=== PATIENT | female | born 1995 | race Caucasian/White ===

== ENCOUNTER 2022-09-19 17:35 | Emergency (ER) | payer OTHER ==
[2022-09-19 18:03] LABS: BILIRUBIN,URINE NEGATIVE (NEGATIVE); GLUCOSE, URINE (UA) NEGATIVE (NEGATIVE); KETONES,URINE (UA) NEGATIVE (NEGATIVE); LEUKOCYTE ESTERASE, URINE TRACE (NEGATIVE); NITRITE,URINE NEGATIVE (NEGATIVE); OCCULT BLOOD,URINE TRACE-INTA (NEGATIVE); PH,URINE 5.5 PH (5.0-7.5); PROTEIN,URINE NEGATIVE (NEGATIVE); UROBILINOGEN,URINE 0.2 (NORMAL) E.U./dL (NORMAL)
[2022-09-19 18:17] LABS: CLARITY,URINE CLEAR (CLEAR); HCG UR QUAL NEGATIVE
[2022-09-19 18:20] LABS: ALBUMIN 4.5 g/dL (3.2-5.5); ALBUMIN/GLOBULIN RATIO 1.4 (1.0-2.2); BILIRUBIN,TOTAL 0.4 mg/dL (0.2-1.0); CALCIUM 9.5 mg/dL (8.5-10.3); CREATININE 0.9 mg/dL (0.4-1.0); POTASSIUM 3.3 mmol/L (3.5-5.0); TOTAL PROTEIN 7.8 g/dL (6.7-8.2)
[2022-09-19 18:23] LABS: BASOPHILS % (AUTO) 0.3 %; EOSINOPHILS # (AUTO) 0.1 10^3/uL (0.0-0.7); EOSINOPHILS % (AUTO) 0.4 %; HCT - HEMATOCRIT 40.2 % (37.0-47.0); HGB - HEMOGLOBIN 13.7 g/dL (12.0-16.0); LYMPHOCYTES # (AUTO) 2.8 10^3/uL (1.5-3.5); LYMPHOCYTES % (AUTO) 21.2 %; MEAN CORPUSCULAR HEMOGLOBIN 31.6 pg (27.0-31.0); MEAN CORPUSCULAR HGB CONC 34.1 g/dL (32.0-36.0); MEAN CORPUSCULAR VOLUME 92.8 fL (81.0-99.0); MEAN PLATELET VOLUME 11.1 fL (7.9-10.8); MONOCYTES # (AUTO) 0.8 10^3/uL (0.0-1.0); MONOCYTES % (AUTO) 6.2 %; NEUTROPHILS # (AUTO) 9.6 10^3/uL (1.5-6.6); NEUTROPHILS % (AUTO) 71.6 %; PLT - PLATELET COUNT 236 10^3/uL (130-450); RED BLOOD COUNT 4.33 10^6/uL (4.20-5.40); RED CELL DISTRIBUTION WIDTH 11.7 % (12.0-15.0); WHITE BLOOD COUNT 13.4 x10^3/uL (4.8-10.8)
[2022-09-19 18:25] LABS: BACTERIA,URINE Few /HPF (None Seen); MUCUS,URINE Few Strands; RBC,URINE 0-5 /HPF (0-5); SQUAMOUS EPITHELIAL CELL,UR MOD Squamous (<= Few)
[2022-09-19] MEDS ORDERED: ONDANSETRON 4 MG/2 ML VIAL IVP STA (18:45)
[2022-09-19] MEDS ORDERED: HYDROmorphone 1 MG/ML CARPUJECT IVP STA (18:45)
[2022-09-19] MEDS ORDERED: SODIUM CHLORIDE 0.9% 1,000 ML IV STA (18:45)
--- NOTE | 2022-09-19 18:58 | ED Physician Documentation ---
History of Present Illness - Stated complaint Stated Complaint: ABD/BACK PAIN - Chief complaint Chief Complaint: Abd Pain - Additonal information Additional information: 26-year-old female presents to the emergency department for evaluation of acute right-sided back pain. She reports that it radiates from her anterior abdomen to her back. She has had some nausea but no vomiting. Reports daily bowel movements but is still concerned she could be constipated. She has no urinary symptoms today but states she might of had a urinary tract infection 3 days ago and for this took Azo. Past surgical history is most significant for a only. In initial evaluation of the patient in the room she is curled up in the position, crying, rocking back and forth with a blanket over her head. She had to be coaxed out of the blanket for interview and history. Initially I did offer her IV fluids and Dilaudid but the patient declined that stating she did not want to be constipated but after some prompting was able to allow us to administer these medications. Review of Systems Constitutional: denies: Fever, Chills Cardiac: reports: Reviewed and negative Respiratory: reports: Reviewed and negative GI: reports: Abdominal Pain, Nausea. denies: Vomiting, Constipation : reports: Reviewed and negative Musculoskeletal: reports: Reviewed and negative PD PAST MEDICAL HISTORY - Present Medications Home Medications: Ambulatory Orders Medication Instructions Recorded Confirmed Escitalopram [Lexapro] 20 mg PO DAILY 09/19/22 09/19/22 Oxycodone HCl/Acetaminophen 1 - 2 each PO Q6H PRN #14 tablet 09/19/22 [Percocet 5-325 mg Tablet] Tamsulosin HCl [Flomax] 0.4 mg PO DAILY #30 cap 09/19/22 - Allergies Allergies/Adverse Reactions: Allergies Allergy/AdvReac Type Severity Reaction Status Date / Time No Known Drug Allergies Allergy Verified 09/19/22 17:45 PD ED PE NORMAL - General General: Alert and oriented X 3. No: No acute distress (Crying, tearful, rocking back and forth.) - HEENT HEENT: PERRL - Cardiac Cardiac: RRR, No murmur - Respiratory Respiratory: No respiratory distress, Clear bilaterally - Abdomen Abdomen: Normal bowel sounds, Soft. No: Non tender (Nonperitoneal tenderness elicited with palpation and light percussion of the right lower quadrant and right flank. No CVA tenderness was elicited. No pain was elicited with palpation of the left side of the abdomen.) - Back Back: No CVA TTP - Derm Derm: Normal color, Warm and dry - Extremities Extremities: No deformity - Neuro Neuro: Alert and oriented X 3 Eye Opening: Spontaneous Motor: Obeys Commands Verbal: Oriented GCS Score: 15 Results - Vitals Vitals: Vital Signs - 24 hr 09/19/22 09/19/22 09/19/22 17:42 18:53 19:08 Temperature 36 C L Heart Rate 74 84 81 Respiratory 18 18 16 Rate Blood Pressure 107/68 111/79 110/66 O2 Saturation 100 100 96 09/19/22 19:44 Temperature Heart Rate 85 Respiratory 23 Rate Blood Pressure 111/76 O2 Saturation 98 Oxygen O2 Source Room air - Labs Labs: Laboratory Tests 09/19/22 09/19/22 09/19/22 17:50 17:54 17:54 WBC 13.4 H RBC 4.33 Hgb 13.7 Hct 40.2 MCV 92.8 MCH 31.6 H MCHC 34.1 RDW 11.7 L Plt Count 236 MPV 11.1 H Neut # (Auto) 9.6 H Lymph # (Auto) 2.8 [place] # (Auto) 0.8 Eos # (Auto) 0.1 Baso # (Auto) 0.0 Absolute Nucleated RBC 0.00 Nucleated RBC % 0.0 Sodium 138 Potassium 3.3 L Chloride 102 Carbon Dioxide 28 Anion Gap 8.0 BUN 17 Creatinine 0.9 Estimated GFR (MDRD) 76 L Glucose 118 H Calcium 9.5 Total Bilirubin 0.4 AST 23 ALT 18 Alkaline Phosphatase 57 Total Protein 7.8 Albumin 4.5 Globulin 3.3 Albumin/Globulin Ratio 1.4 Lipase 56 H Urine Color DARK YELLOW Urine Clarity CLEAR Urine pH 5.5 Ur Specific [place] >=1.030 H Urine Protein NEGATIVE Urine Glucose (UA) NEGATIVE Urine Ketones NEGATIVE Urine Occult Blood TRACE-INTA Urine Nitrite NEGATIVE Urine Bilirubin NEGATIVE Urine Urobilinogen 0.2 (NORMAL) Ur Leukocyte Esterase TRACE H Urine RBC 0-5 Urine WBC 4-5 Ur Squamous Epith Cells MOD Squamous H Urine Bacteria Few Urine Mucus Few Strands Ur Microscopic Review INDICATED Urine Culture Comments NOT INDICATED Urine HCG, Qual NEGATIVE - Rads (name of study) CT abd Relevant Findings:: Final report received (4 mm obstructing right UVJ calculus. Decreased right nephrogram indicates slightly decreased right renal function due to obstruction.) PD Medical Decision Making - ED course Complexity details: reviewed results, re-evaluated patient, d/w patient ED course: 26-year-old female presents emergency department for the evaluation of acute sudden severe right-sided Abdominal pain with radiation to the back. She had some nausea but no vomiting. On initial presentation she was crying, tearful and had to be coaxed from under a blanket for the clinical exam. She did have some tenderness along the right side of the abdomen and flank with no CVA tenderness elicited. We did obtain a CBC, electrolytes and urinalysis. Per my interpretation there is some mild leukocytosis with white count of 13,000. Her electrolytes showed no worrisome derangement. Her urinalysis is not consistent with infection. She is not . Given the location and acuity of the abdominal pain a CT scan was completed to rule out acute worrisome findings such as acute appendicitis, nephrolithiasis or bowel obstruction. CT subsequently did show a 4 mm obstructing stone at the right UVJ. There is some associated lack of contrast uptake in the right kidney consistent with obstruction. However the patient continues to have normal renal function. Initially in the emergency department she was administered a liter of IV fluid as well as some Dilaudid. This moderately improved her pain. I did then followed this up with a single dose of 30 mg Toradol IV. Patient did not feel that this improved her pain and was requesting more Dilaudid. Subsequently I administered 75 mcgs of fentanyl IV. This improved the pain on reevaluation. I did discuss with the patient the CT imaging findings. We discussed that typically stones under 5 mm will pass. She will be started on Flomax. I am recommending Tylenol and ibuprofen at home. A limited prescription of Percocet was sent home with the patient lorena and [place] She is advised close follow-up with PCP for referral to the urologist. Usual emergent return precautions for worsening symptoms were discussed. Departure - Departure Clinical Impression: Calculus of ureterovesical junction (UVJ) Condition: Stable Record reviewed to determine appropriate education?: Yes Instructions: ED Stone Renal W Colic Prescriptions: Tamsulosin HCl [Flomax] 0.4 mg PO DAILY #30 cap Oxycodone HCl/Acetaminophen [Percocet 5-325 mg Tablet] 1 - 2 each PO Q6H PRN #14 tablet PRN Reason: pain Comments: Yuly you are seen today in the ER because you develop sudden pain on your right side of the abdomen that radiated to your back. Your labs today in the emergency department did not show any worrisome findings. You do not have a urinary tract infection. However the CT scan did show a 4 mm stone in the ureter at the junction where it meets the bladder. This is slightly obstructing and is what is likely causing your belly and back pain. Most stones under 5 mm of size will successfully passed into the bladder. I have given you a dose of a medication called Flomax today in the emergency department. This can help dilate the ureter and hopefully get the stone to pass into the bladder where it will be less painful. Typically kidney and ureter pain such as this is best managed with ibuprofen 600 mg taken with food 3-4 times a day. You can also alternate with Tylenol 500 mg 2-3 times a day. For more severe pain I [place] It is important that you follow closely with your primary doctor. You may benefit from referral to urology for longer-term evaluation and monitoring of the right ureter stone. Return to the ER if you find that you are having worsening symptoms, uncontrolle d vomiting or develop any fevers.
[2022-09-19] MEDS ORDERED: iohexoL-300 100 ML VIAL ONE (19:01)
[2022-09-19] MEDS ORDERED: KETOROLAC 30 MG/ML VIAL IVP STA (19:59)
--- NOTE | 2022-09-19 20:18 | CT Report ---
PROCEDURE: ABDOMEN/PELVIS W INDICATIONS: Right-sided abdominal pain CONTRAST: 100mL Omni 300 TECHNIQUE: After the administration of intravenous contrast, 5 mm thick sections acquired from the diaphragms to the symphysis. 5 mm thick coronal and sagittal reformats were acquired. For radiation dose reducti on, the following was used: automated exposure control, adjustment of mA and/or kV according to pete ent size. COMPARISON: None FINDINGS: Image quality: Excellent. Lung bases and heart: Clear lung bases. Normal size heart. No hiatal hernia. Partially imaged bilater al breast implants. Liver: No solid mass. Gallbladder and biliary tree: Normal gallbladder. Nondilated biliary tree. Spleen: No splenomegaly. Pancreas: No pancreatic ductal dilation. Adrenals: No adrenal nodule. Kidneys and ureters: There is a delayed right nephrogram and slight relative right renal enlargement. There is mild right hydronephrosis and hydroureter. A 4 mm calcification is present at the right ure terovesicular junction. The left kidney and ureter appear normal. Bowel and peritoneum: Stomach and small bowel are normal. Normal appendix. Mildly increased quantity of solid stool. Lymph nodes: No central or retroperitoneal adenopathy. Vessels: No infrarenal aortic aneurysm. PELVIS Reproductive organs: Normal size uterus. Ovaries are not well seen on CT. Bladder: No abnormal wall thickening, accounting for underdistension. Pelvic lymph nodes: No pelvic adenopathy by size criteria. Bones: No aggressive osseous abnormality. Other: Tiny fat-containing umbilical hernia. Extensive subcutaneous tissue nodularity in the posterio r pelvic wall. IMPRESSION: 1. 4 mm obstructing right ureterovesicular junction calculus. 2. Decreased right nephrogram indicates slightly decreased right renal function due to obstruction. Reviewed by: Imani Melgoza MD on 09/19/2022 8:17 PM PDT Approved by: Imani Melgoza MD on 09/19/2022 8:17 PM PDT Station ID: [id number]
[2022-09-19] MEDS ORDERED: fentaNYL 100 MCG/2 ML VIAL IVP STA (20:43)
[2022-09-19] MEDS ORDERED: TAMSULOSIN 0.4 MG CAPSULE PO STA (20:43)
[2022-09-19] MEDS ORDERED: oxyCODONE/ACET 5/325 Prepack 4 PO STA (20:57)
[2022-09-19 21:28] VITALS: BP 100/61
[2022-09-19] MEDS ORDERED: iohexoL-300 100 ML VIAL IVP ONE (21:55)
== END 2022-09-19 21:45 | disposition home or self-care (01) ==
LOC: ED 17:35
DX: N20.1 Calculus of ureter (principal)
CPT/HCPCS: 36415; 74177; 80053; 81001; 81025; 83690; 85025; 96374; 96375; 99284; 99285; A9270; J1170; Q9967; 81003; 87086

== ENCOUNTER 2022-11-25 11:50 | Emergency (ER) | payer OTHER ==
[2022-11-25 12:07] VITALS: BP 122/70; O2SAT 100
[2022-11-25] MEDS ORDERED: DEXAMETHASONE 10 MG/ML VIAL PO STA (12:15)
[2022-11-25] MEDS ORDERED: CHERRY SYRUP 10 ML UDC PO ONE (12:15)
--- NOTE | 2022-11-25 12:17 | ED Physician Documentation ---
History of Present Illness - Stated complaint Stated Complaint: L ARM PX/RASH - Chief complaint Chief Complaint: General - History obtained from History obtained from: Patient - Additonal information Additional information: 2 nights ago she thinks she was stung on the left forearm by some sort of an insect. Since then its become inflamed and itchy. She denies fevers. PD PAST MEDICAL HISTORY - Present Medications Home Medications: Ambulatory Orders Medication Instructions Recorded Confirmed Escitalopram [Lexapro] 20 mg PO DAILY 09/19/22 09/19/22 Oxycodone HCl/Acetaminophen 1 - 2 each PO Q6H PRN #14 tablet 09/19/22 [Percocet 5-325 mg Tablet] Tamsulosin HCl [Flomax] 0.4 mg PO DAILY #30 cap 09/19/22 Mupirocin 2% Oint [Bactroban 2% 1 applic TOP BID #50 gm 11/25/22 Oint] - Allergies Allergies/Adverse Reactions: Allergies Allergy/AdvReac Type Severity Reaction Status Date / Time No Known Drug Allergies Allergy Verified 09/19/22 17:45 PD ED PE NORMAL - Vitals Vital signs reviewed: Yes - General General: Alert and oriented X 3, No acute distress - Extremities Extremities: Other (There is inflamed area about palm size over the left medial mid/upper forearm. There is what appears to be a bite in the center of it. It does not have the look of cellulitis. Painless pain range of motion at elbow an d wrist. No pain out of proportion to exam.) - Neuro Neuro: Alert and oriented X 3, Normal speech Results - Vitals Vitals: Vital Signs - 24 hr 11/25/22 11:57 Temperature 37.2 C Heart Rate 93 Respiratory 18 Rate Blood Pressure 122/70 O2 Saturation 100 Oxygen O2 Source Room air PD Medical Decision Making - ED course ED course: Appears to be a local reaction probably to a hymenoptera sting. She is given dexamethasone here and prophylactic mupirocin. Departure - Departure Disposition: 01 Home, Self Care Clinical Impression: Local reaction to hymenoptera sting Condition: Good Record reviewed to determine appropriate education?: Yes Instructions: ED Bite Sting Insect Local Allergic React Prescriptions: Mupirocin 2% Oint [Bactroban 2% Oint] 1 applic TOP BID #50 gm Comments: As discussed, I suspect you have a local allergic reaction to a bee or wasp sting. You received a dose of long-acting oral steroid here, dexamethasone which should help with the inflammation and I am also giving a prescription for topical antibiotic cream to prevent infection, I do not think it is actively infected now based on appearance and symptoms. Return if worsening. You should improve over the next couple of days.
== END 2022-11-25 12:32 | disposition home or self-care (01) ==
LOC: ED 11:50
DX: S50.862A Insect bite (nonvenomous) of left forearm, initial encounter (principal); W57.XXXA Bitten or stung by nonvenomous insect and other nonvenomous arthropods, initial encounter
CPT/HCPCS: 99282; 99283; A9270

== ENCOUNTER 2023-01-11 08:00 | Outpatient (CLI) | payer OTHER ==
[2023-01-11 16:46] LABS: BILIRUBIN,URINE NEGATIVE (NEGATIVE); GLUCOSE, URINE (UA) NEGATIVE (NEGATIVE); KETONES,URINE (UA) NEGATIVE (NEGATIVE); LEUKOCYTE ESTERASE, URINE NEGATIVE (NEGATIVE); NITRITE,URINE NEGATIVE (NEGATIVE); OCCULT BLOOD,URINE NEGATIVE (NEGATIVE); PROTEIN,URINE NEGATIVE (NEGATIVE); UROBILINOGEN,URINE 0.2 (NORMAL) E.U./dL (NORMAL)
[2023-01-11 16:49] LABS: CLARITY,URINE CLOUDY (CLEAR)
[2023-01-11 16:54] LABS: RBC,URINE None Seen /HPF (0-5); SQUAMOUS EPITHELIAL CELL,UR RARE Squamous (<= Few); WBC,URINE 0-3 /HPF (0-5)
[2023-01-11 16:55] LABS: AMORPHOUS SEDIMENT,UR Marked /LPF; BACTERIA,URINE None Seen /HPF (None Seen)
== END 2023-01-11 23:56 | disposition home or self-care (01) ==
LOC: LAB.WC 08:00
PROVIDERS: ATTEND Obstetrics & Gynecology
DX: Z34.90 Encounter for supervision of normal pregnancy, unspecified, unspecified trimester (principal)
CPT/HCPCS: 81001; 87086

== ENCOUNTER 2023-01-16 12:42 | Outpatient (CLI) | payer OTHER ==
[2023-01-16 18:32] LABS: THYROID STIMULATING HORMONE 0.98 uIU/mL (0.34-5.60)
[2023-01-16 22:17] LABS: ESTIMATED AVERAGE GLUCOSE 91 mg/dL (70-100); HEMOGLOBIN A1c% 4.8 % (4.27-6.07)
[2023-01-17 03:10] LABS: HCV AB Non Reactive (Non Reactive); HIV SCREEN 4TH GENERATION Non Reactive (Non Reactive)
[2023-01-17 08:10] LABS: HBsAG SCREEN Negative (Negative); RPR Non Reactive (Non Reactive)
[2023-01-17 08:12] LABS: HCT - HEMATOCRIT 37.8 % (37.0-47.0); HGB - HEMOGLOBIN 12.8 g/dL (12.0-16.0); RED BLOOD COUNT 4.05 10^6/uL (4.20-5.40); WHITE BLOOD COUNT 9.2 x10^3/uL (4.8-10.8)
[2023-01-17 08:14] LABS: MEAN CORPUSCULAR HEMOGLOBIN 31.6 pg (27.0-31.0); MEAN CORPUSCULAR HGB CONC 33.9 g/dL (32.0-36.0); MEAN CORPUSCULAR VOLUME 93.3 fL (81.0-99.0)
[2023-01-17 08:15] LABS: BASOPHILS % (AUTO) 0.2 %; EOSINOPHILS # (AUTO) 0.1 10^3/uL (0.0-0.7); EOSINOPHILS % (AUTO) 0.5 %; LYMPHOCYTES # (AUTO) 1.7 10^3/uL (1.5-3.5); LYMPHOCYTES % (AUTO) 18.2 %; MEAN PLATELET VOLUME 11.6 fL (7.9-10.8); MONOCYTES # (AUTO) 0.6 10^3/uL (0.0-1.0); NEUTROPHILS # (AUTO) 6.8 10^3/uL (1.5-6.6); NEUTROPHILS % (AUTO) 73.8 %; PLT - PLATELET COUNT 229 10^3/uL (130-450); RED CELL DISTRIBUTION WIDTH 11.7 % (12.0-15.0)
[2023-01-17 11:10] LABS: VARICELLA-ZOSTER AB IGG <135 index (Immune >165)
== END 2023-01-16 12:43 | disposition home or self-care (01) ==
LOC: LAB.N 12:42
PROVIDERS: ATTEND Obstetrics & Gynecology
DX: Z34.90 Encounter for supervision of normal pregnancy, unspecified, unspecified trimester (principal)
CPT/HCPCS: 36415; 83036; 84443; 85025; 86592; 86762; 86787; 86803; 86850; 86900; 86901; 87340; 87389

== ENCOUNTER 2023-01-23 08:00 | Outpatient (CLI) | payer OTHER ==
[2023-01-23 21:25] LABS: CHLAMYDIA TRACHOMATIS DNA NEGATIVE (NEGATIVE); NEISSERIA GONORRHOEAE DNA NEGATIVE (NEGATIVE); TRICHOMONAS VAGINALIS DNA NEGATIVE (NEGATIVE)
== END 2023-01-23 23:59 | disposition home or self-care (01) ==
LOC: LAB.WC 08:00
PROVIDERS: ATTEND Obstetrics & Gynecology
DX: Z11.3 Encounter for screening for infections with a predominantly sexual mode of transmission (principal)
CPT/HCPCS: 87491; 87591; 87661

== ENCOUNTER 2023-01-24 16:54 | Outpatient (CLI) | payer OTHER ==
--- NOTE | 2023-01-25 17:35 | Ultrasound Report ---
PROCEDURE: OB First Trimester INDICATIONS: POSITIVE TEST OUTSIDE/PRIOR DATING DATA: Last menstrual period (LMP): 10/24/2022. LMP-based estimated date of delivery (RO): 07/31/2023. First dating scan (date and location): 01/24/2023. Estimated date of delivery (RO) from first dating scan: 08/16/2023. TECHNIQUE: Real-time scanning was performed of the fetus and maternal pelvic organs, with image documentation. COMPARISON: None. FINDINGS: Single living intrauterine gestation identified measuring approximately 10 weeks and 6 day s based off crown-rump length measurement of approximately 3.9 cm. Heart rate: 178 bpm. Other: No perigestational fluid collection. Measurement variability in dating: +/- 4 weeks by LMP, +/- 7 days by mean sac diameter (use before 6 weeks gestation if crown-rump length not able to be measured), +/- 5 days by crown-rump length (6-12 weeks gestation). Maternal organs: Ovaries appear within normal limits. Incidental right ovarian cyst measuring 1.9 cm . IMPRESSION: Single living intrauterine gestation with estimated sonographic gestational age of approximately 10 w eeks and 6 days which correlates with an estimated date of delivery of approximately 08/16/2023. This is discordant with last menstrual period estimated date of delivery of approximately 07/31/2023. Recommend continued clinical surveillance. Routine second trimester anatomy screening survey is also recommended. Reviewed by: Mohsen Partida MD on 01/25/2023 5:34 PM PDT Approved by: Mohsen Partida MD on 01/25/2023 5:34 PM PDT Station ID: [id number]
== END 2023-01-24 16:55 | disposition home or self-care (01) ==
LOC: DI 16:54
PROVIDERS: ATTEND Obstetrics & Gynecology
DX: Z34.91 Encounter for supervision of normal pregnancy, unspecified, first trimester (principal)

== ENCOUNTER 2023-03-18 09:56 | Outpatient (CLI) | payer OTHER ==
[2023-03-21 10:09] LABS: AFP MOM See interpretation. (.); AFP VALUE 29.3 ng/mL (.); GESTAT. AGE METHOD Ultrasound (.); INSULIN DEP DIABETES No (.); MATERNAL AGE AT EDD 26.8 yr (.); MULTIPLE GESTATION No (.); OPEN SPINA BIFIDA RISK 1 IN See interpretation. (.); RACE Caucasian (.); RESULTS Report (.); TEST RESULTS See interpretation. (.); WEIGHT 168 lbs (.)
== END 2023-03-18 09:57 | disposition home or self-care (01) ==
LOC: LAB 09:56
PROVIDERS: ATTEND Obstetrics & Gynecology
DX: Z34.90 Encounter for supervision of normal pregnancy, unspecified, unspecified trimester (principal); Z36.0 Encounter for antenatal screening for chromosomal anomalies
CPT/HCPCS: 36415; 82105

== ENCOUNTER 2023-03-20 21:29 | Outpatient (CLI) | payer OTHER ==
--- NOTE | 2023-03-21 11:14 | Ultrasound Report ---
PROCEDURE: OB Detailed Eval INDICATIONS: MATERNAL CARE OF LOW TRANSVERSE SCAR FROM PREVIOUS OUTSIDE/PRIOR DATING DATA: Last menstrual period (LMP): 10/24/2022. LMP-based estimated date of delivery (RO): 07/31/2023. First dating scan (date and location): 01/25/2024. Estimated date of delivery (RO) from first dating scan: 08/16/2023. The below data below was generated using the ultrasound RO of 08/16/2023. Ultrasound dates will be ut ilized as the established dates. TECHNIQUE: Real-time scanning was performed of the fetus, with image documentation and biometric measurements. Endovaginal scanning: Not performed. COMPARISON: None. FINDINGS: General: A single living intrauterine gestation is present. Presentation: Vertex Placenta: Placental position is anterior, without previa. Amniotic fluid index: 14.1 cm, within normal limits for gestational age. heart rate: 157 beats per minute. Maternal cervical canal: 3.14 cm long; normal length is 2.5 cm or more. biometrics: Biparietal diameter: 4.1 cm, 18 weeks 3 days, 37.7 percentile Head circumference: 15.5 cm, 18 weeks 3 days, 30.7 percentile Abdominal circumference: 13.08 cm, 18 weeks 4 days, 42.5 percentile Femur length: 2.78 cm, 18 weeks 4 days, 35.6 percentile Estimated gestational age from initial scan: 18 weeks 5 days Composite gestational age from present scan: 18 weeks 3 days Estimated weight and percentile: 35.4 percentile Measurement variability in biometric dating: +/- 10 days from 12-20 weeks gestation, +/- 2 weeks from 20-30 weeks gestation, +/- 3 weeks at 30 weeks gestation or later. Anatomic survey: Neuro: Ventricles are normal at less than 10 mm. Cisterna magna is normal at 3-11 mm. Cerebellum i s normal in size and morphology. Nuchal skin fold: Normal at less than 6 mm between 14 and 20 weeks gestational age. Face: Nose and lips, facial profile are normal. Spine: No evidence for spina bifida. Heart: 4-chambered heart is present, with normal ventricular outflow tracts. Diaphragm: Diaphragm is intact. Stomach: Left-sided stomach is present. Kidneys: No hydronephrosis. Normal is less than 5 mm in 2nd trimester, less than 7 mm in 3rd trimester. Cord: 3 vessel cord has orthotopic insertion. Bladder: Normal in size. Extremities: All 4 extremities are visualized. Prominent placental lakes are noted. IMPRESSION: 1. Living second trimester intrauterine with no sonographic evidence of complications. Curr ent ultrasound age is 2 days less than clinical age based on initial first trimester ultrasound. 2. Normal second trimester anatomy scan. Reviewed by: Ezequiel Todd MD on 03/21/2023 11:12 AM PST Approved by: Ezequiel Todd MD on 03/21/2023 11:12 AM PST Station ID: [id number]
== END 2023-03-20 21:30 | disposition home or self-care (01) ==
LOC: DI 21:29
PROVIDERS: ATTEND Obstetrics & Gynecology
DX: Z34.92 Encounter for supervision of normal pregnancy, unspecified, second trimester (principal)

== ENCOUNTER 2023-05-27 15:50 | Outpatient (CLI) | payer MEDICAID ==
[2023-05-27 16:36] LABS: HCT - HEMATOCRIT 31.9 % (37.0-47.0); HGB - HEMOGLOBIN 10.6 g/dL (12.0-16.0); MEAN CORPUSCULAR HGB CONC 33.2 g/dL (32.0-36.0); MEAN CORPUSCULAR VOLUME 96.4 fL (81.0-99.0); MEAN PLATELET VOLUME 11.4 fL (7.9-10.8); RED BLOOD COUNT 3.31 10^6/uL (4.20-5.40); RED CELL DISTRIBUTION WIDTH 12.6 % (12.0-15.0); WHITE BLOOD COUNT 10.9 x10^3/uL (4.8-10.8)
== END 2023-05-27 15:51 | disposition home or self-care (01) ==
LOC: LAB 15:50
PROVIDERS: ATTEND Obstetrics & Gynecology
DX: Z34.90 Encounter for supervision of normal pregnancy, unspecified, unspecified trimester (principal); Z36.89 Encounter for other specified antenatal screening
CPT/HCPCS: 36415; 85027

== ENCOUNTER 2023-07-08 16:00 | Outpatient (CLI) | payer MEDICAID ==
[2023-07-08 16:39] LABS: ALBUMIN 3.3 g/dL (3.2-5.5); ALBUMIN/GLOBULIN RATIO 1.1 (1.0-2.2); BILIRUBIN,TOTAL 0.4 mg/dL (0.2-1.0); CREATININE 0.7 mg/dL (0.6-1.3); POTASSIUM 3.7 mmol/L (3.5-4.5); TOTAL PROTEIN 6.2 g/dL (6.4-8.9)
[2023-07-08 16:40] LABS: CREATININE,URINE 168.9 mg/dL; PROTEIN/CREATININE RATIO,URINE 0.3 (<=0.2)
[2023-07-08 16:49] LABS: THYROID STIMULATING HORMONE 1.76 uIU/mL (0.34-5.60)
== END 2023-07-08 16:01 | disposition home or self-care (01) ==
LOC: LAB 16:00
PROVIDERS: ATTEND Nurse Practitioner
DX: R19.7 Diarrhea, unspecified (principal); R60.9 Edema, unspecified
CPT/HCPCS: 36415; 80053; 82570; 84156; 84443

== ENCOUNTER 2023-07-29 15:36 | Outpatient (CLI) | payer MEDICAID ==
[2023-07-29 16:10] LABS: ALBUMIN 3.4 g/dL (3.2-5.5); ALBUMIN/GLOBULIN RATIO 1.1 (1.0-2.2); BILIRUBIN,TOTAL 0.3 mg/dL (0.2-1.0); CALCIUM 9.3 mg/dL (8.5-10.3); CREATININE 0.7 mg/dL (0.6-1.3); POTASSIUM 3.9 mmol/L (3.5-4.5); TOTAL PROTEIN 6.4 g/dL (6.4-8.9)
== END 2023-07-29 15:37 | disposition home or self-care (01) ==
LOC: LAB 15:36
PROVIDERS: ATTEND Obstetrics & Gynecology
DX: L29.9 Pruritus, unspecified (principal)
CPT/HCPCS: 36415; 80053; 82239

== ENCOUNTER 2023-08-13 06:23 | Inpatient (IN) | payer MEDICAID ==
--- NOTE | 2023-08-13 06:56 | HISTORY & PHYSICAL EXAMINATION ---
Admit History - : 4 Parity: 1 - Mother's Labs Mother's Blood Type: positive: O Mother's RH: positive: Positive GBS: positive: Group B Step Negative Rubella Status: positive: Immune - Other Maternal History Other Maternal History: HPI: Patient is a 27-year-old at 39 weeks 4 days gestation presenting today for repeat ceasarean section. She has good movement. Denies loss of fluid. No AGUILAR/BV or RUQP. No vaginal bleeding. Denies nausea and vomiting. Denies urinary urgency or dysuria. All other symptoms reviewed and were negative except per HPI. Course LMP: 10/24/22, RO by LMP: 07/31/23, conception 11/30/22 with RO 08/24/23. US: 9w6d on January 23, 2023 Final RO: 08/24/23 by ultrasound and conception date. FOB: Victoriano Ritchie problem list: prior c section wants repeat DECLINING sterilization (07/08/2023) . 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 Therapy will likely be ineffective at this point. varicella not immune. Depression: 3rd trimester EPDS 20. Previously on lexapro, but declines need. Considering starting around . Lagging biometry: EFW 34%, FL <0.5%. Offered MFM consult, but declines as she will do 39 week and does not think it will change the outcome. Pre- Weight:167.8 BMI: 30.80 Blood type: O+ Antibody: negative CBC: PLT 229 HCT 37.8 HGB 12.8 RUB: immune VZV: NOT immune HBsAg: negative HepC: NR RPR/AB-EIA: NR HIV: NR PAP: due per patient, last one normal GC/CT: self collected negative HSV: denies self/partner Genetic testing:NIPT- Negative AFP-ordered negative Covid: Pfizer, first set Flu: declines FAS: WNL Placenta:Anterior without previa Cord:Three-vessel SANTOS: WNL EFW:35th percentile. 50gm OGCT: Early 1-hour GTT not done. 28-week labs ordered. not done 07/07 Glucose lab 81 mg/dL TDAP: given 06/09 Breast Pump: 05/27 3rd trimester PLT 181 HGB 31.9 HCT 10.6 GBS: 07/22/2023 negative Delivery plan: repeat c section with DECLINING sterilization as of 07/08/2023. Would like parter to get vasectomy. R/P c/s scheduled on 08/13/2023 Contraception: Considering partner vasectomy, but discussed during repeat C- section this is likely a better option. PMH PTSD Anxiety Major Depressive Disorder Chronic Back Pain PSH Low transverse section Breast augmentation OB History [G P ] SH Denies tobacco, alcohol, drugs Family History Mother: Diabetes, Drug abuse, mental health/bipolar, COPD Father: Drug abuse Maternal Grandmother: Diabetes Paternal Grandmother: Diabetes Paternal Grandfather: Diabetes, prostate cancer Allergies No known drug allergies Medications Pepcid 20mg BID vitamin Physical exam: General: Alert, oriented, no acute distress Head: Normal cephalic atraumatic Eyes: PERRLA, extraocular motions intact. Respiratory: Normal rate of respiration. No accessory muscle use, normal respiratory effort. Cardiovascular: Regular rate and rhythm Abdomen: Gravid, nontender, nondistended Extremities: Normal range of motion Neuro: Oriented x3. Normal movements Psych: Appropriate mood and affect. Normal judgment and insight FHT: 135 bpm baseline, moderate variability, accelerations present, no decelerations [place]: irregular. Plan 1. Repeat section - section was recommended. Risks, benefits and alternatives were disc ussed including but not limited to infection, bleeding that may require blood products or hysterectomy for life saving measures, injury to surrounding organs including but not limited to bowel, bladder, ureters, tubes and ovaries and/or the baby. Should injury occur it could require longer/additional surgery to repair. The patient stated understanding and desired to proceed. All questions were answered posed by patient. -Admit to L&D, admit labs, 2 grams cefazolin for surgery prophylaxis. 2. 39 weeks gestation 3. Previous low transverse section 4. Anxiety Meds/Allgy - Home Medications Home Medications: Ambulatory Orders Medication Instructions Recorded Confirmed Escitalopram [Lexapro] 20 mg PO DAILY 09/19/22 09/19/22 Oxycodone HCl/Acetaminophen 1 - 2 each PO Q6H PRN #14 tablet 09/19/22 [Percocet 5-325 mg Tablet] Tamsulosin HCl [Flomax] 0.4 mg PO DAILY #30 cap 09/19/22 Mupirocin 2% Oint [Bactroban 2% 1 applic TOP BID #50 gm 11/25/22 Oint] - Allergies Allergies/Adverse Reactions: Allergies Allergy/AdvReac Type Severity Reaction Status Date / Time No Known Drug Allergies Allergy Verified 07/29/23 11:38 Plan for Labor - Plan For Labor I expect patient to be DC'd or transferred within 96 hours.: Yes
[2023-08-13 07:21] LABS: BASOPHILS % (AUTO) 0.2 %; EOSINOPHILS % (AUTO) 0.3 %; HCT - HEMATOCRIT 30.9 % (37.0-47.0); HGB - HEMOGLOBIN 9.9 g/dL (12.0-16.0); LYMPHOCYTES # (AUTO) 1.7 10^3/uL (1.5-3.5); LYMPHOCYTES % (AUTO) 12.8 %; MEAN CORPUSCULAR HEMOGLOBIN 30.5 pg (27.0-31.0); MEAN CORPUSCULAR VOLUME 95.1 fL (81.0-99.0); MEAN PLATELET VOLUME 12.2 fL (7.9-10.8); MONOCYTES % (AUTO) 7.9 %; NEUTROPHILS # (AUTO) 10.3 10^3/uL (1.5-6.6); NEUTROPHILS % (AUTO) 77.8 %; PLT - PLATELET COUNT 139 10^3/uL (130-450); RED BLOOD COUNT 3.25 10^6/uL (4.20-5.40); WHITE BLOOD COUNT 13.2 x10^3/uL (4.8-10.8)
[2023-08-13] MEDS ORDERED: SODIUM CHLORIDE 0.9% 10 ML VIAL IVP ONE (08:14)
[2023-08-13] MEDS ORDERED: ePHEDrine 50 MG/ML VIAL IVP ONE (08:14)
[2023-08-13] MEDS ORDERED: PHENYLEPHRINE HCL 0.5 MG/5 ML AMPULE ONE (08:14)
[2023-08-13] MEDS ORDERED: fentaNYL 100 MCG/2 ML VIAL ONE (08:15)
[2023-08-13] MEDS ORDERED: MORPHINE PF 5 MG/10 ML VIAL ONE (08:15)
--- NOTE | 2023-08-13 08:17 | ANESTHESIA ---
Pre-Anesthesia VS, & Labs - Diagnosis previous c/s, desires sterilization - Procedure repeat c/s with B tubal ligation Vital Signs: Temp Pulse Resp BP Pulse Ox O2 Flow Rate 36.7 C 99 18 121/71 08/13/23 06:55 08/13/23 06:55 08/13/23 06:55 08/13/23 06:55 Height: 5 ft 2 in Weight (kg): 91.626 kg Body Mass Index: 36.9 BMI Classification: Obese - NPO >8 hours - Is Patient ?: Yes - Lab Results Current Lab Results: Laboratory Tests 08/13/23 07:13: WBC 13.2 H, RBC 3.25 L, Hgb 9.9 L, Hct 30.9 L, MCV 95.1, MCH 30.5, MCHC 32.0, RDW 13.0, Plt Count 139, MPV 12.2 H, Neut # (Auto) 10.3 H, Lymph # (Auto) 1.7, [place] # (Auto) 1.0, Eos # (Auto) 0.0, Baso # (Auto) 0.0, Absolute Nucleated RBC 0.00, Nucleated RBC % 0.0 Lab results reviewed: Yes Fish Bones: 08/13/23 07:13 Home Medications and Allergies Home Medications: Ambulatory Orders Famotidine [Pepcid] 20 mg PO BID PRN 08/13/23 Pnv No.95/Ferrous Fum/Folic AC [ Tablet] 1 tab PO DAILY 08/13/23 Active Medications Lactated Ringer's (Lr) 1,000 mls @ 125 mls/hr IV .Q8H ASTRID Escitalopram [Lexapro] 20 mg PO DAILY 09/19/22 Allergies/Adverse Reactions: Allergies Allergy/AdvReac Type Severity Reaction Status Date / Time No Known Drug Allergies Allergy Verified 07/29/23 11:38 Anes History & Medical History - Anesthetic History Anesthesia Complications: reports: No previous complications Family history of Anesthesia Complications: Denies Family history of Malignant Hyperthermia: Denies - Medical History Cardiovascular: reports: None Pulmonary: reports: None Smoking Status: Never smoker - Obstetrical History : 4 Parity: 1 Exam General: Alert, Oriented x3, Cooperative Dental: WNL Mouth Openin Fingerbreadth Respiratory: Lungs clear Cardiovascular: Regular rate Neurological: Normal speech Mental/Cognitive Status: Alert/Oriented X3, Normal for patient Cognitive Status: Within normal limits Plan Anesthesia Type: Spinal Regional Block: Per Surgeon's request for Post Op pain control Consent for Procedure(s) Verified and Reviewed: Yes Code Status: Attempt Resuscitation ASA classification: 2-Mild systemic disease Is this case an emergency?: No
[2023-08-13] MEDS: ACETAMINOPHEN 500 MG TABLET PO ONE (08:20)
[2023-08-13] MEDS: ceFAZolin 2 GM in SODIUM CHLORIDE 0.9% 100ML 100 ML IV STA (08:20)
[2023-08-13] MEDS: LACTATED RINGERS 1,000 ML IV SCH (08:20)
[2023-08-13] MEDS: CITRIC ACID/SODIUM CITRATE 15 ML UDC PO ONE (08:20)
[2023-08-13] MEDS ORDERED: MORPHINE PF 5 MG/10 ML VIAL IT ONE (08:45)
[2023-08-13] MEDS ORDERED: fentaNYL 100 MCG/2 ML VIAL IT ONE (08:45)
--- NOTE | 2023-08-13 08:54 | PHARMACY PROGRESS NOTE ---
- Best Possible Medication History Admit Date and Time: 08/13/23 06 Processed by: Pharmacy Medications reviewed in ED?: No Medication History completed: Yes Patient Interview: Pt unable to participate Secondary Source(s): Physician records (H&P Note), Insurance records As the person ultimately responsible for medication therapy, providers are able to order a medication from an existing home medication list in [facility] via the "Reconcile Routine" prior to Confirmation of that medication by support representative. Such practice is discouraged except when the physician, in their clinical judgment, deems that a medical need exists for a medication without regard to previous use.
[2023-08-13] MEDS ORDERED: NALOXONE 0.4 MG/ML VIAL IVP PRN ×2 (08:59→09:00)
[2023-08-13] MEDS ORDERED: MORPHINE 2 MG/ML CARPUJECT IVP PRN (08:59)
[2023-08-13] MEDS ORDERED: METOCLOPRAMIDE 10 MG/2 ML VIAL IVP PRN ×2 (08:59→09:00)
[2023-08-13] MEDS ORDERED: fentaNYL 100 MCG/2 ML VIAL IVP PRN (08:59)
[2023-08-13] MEDS ORDERED: ePHEDrine 50 MG/ML VIAL IVP PRN ×2 (08:59→09:00)
[2023-08-13] MEDS ORDERED: ATROPINE ABBOJECT 1 MG/10 ML SYRINGE IVP PRN (08:59)
[2023-08-13] MEDS ORDERED: ONDANSETRON 4 MG/2 ML VIAL IVP PRN ×2 (08:59→09:00)
[2023-08-13] MEDS ORDERED: HYDROmorphone 0.5 MG/0.5 ML SYRINGE IVP PRN (08:59)
[2023-08-13] MEDS ORDERED: diphenhydrAMINE INJ 50 MG/ML VIAL IVP PRN (09:00)
[2023-08-13] MEDS ORDERED: LACTATED RINGERS 1,000 ML IV SCH ×2 (09:00→11:00)
[2023-08-13] MEDS ORDERED: NALBUPHINE 10 MG/ML AMP IVP PRN (09:00)
[2023-08-13] MEDS ORDERED: ONDANSETRON 4 MG/2 ML VIAL ONE (09:17)
[2023-08-13] MEDS ORDERED: ACETAMINOPHEN 1,000 MG/100 ML 1,000 MG/100 ML BAG IV ONE (09:21)
[2023-08-13] MEDS ORDERED: KETOROLAC 30 MG/ML VIAL ONE (09:21)
[2023-08-13] MEDS: LACTATED RINGERS 800 ML IV ONE (10:31)
[2023-08-13] MEDS: OXYTOCIN/SODIUM CHLORIDE 500 ML IV ONE (10:50)
[2023-08-13] MEDS ORDERED: ONDANSETRON ODT 4 MG TABLET TL PRN ×2 (10:59)
[2023-08-13] MEDS ORDERED: OXYTOCIN/SODIUM CHLORIDE 500 ML IV PRN (10:59)
[2023-08-13] MEDS ORDERED: SODIUM CHLORIDE FLUSH 0.9% 10 ML SYRINGE IVP PRN (10:59)
--- NOTE | 2023-08-13 11:03 | OPERATIVE REPORT ---
Operative Report - General Admit Date: 08/13/23 Procedure Date: 08/13/23 Planned Procedure: Repeat low-transverse section Pre-Op Diagnosis: Previous low-transverse section, 39 weeks gestation Procedure Performed: Repeat low-transverse section Post Op Diagnosis: Previous low-transverse section, 39 weeks gestation - Procedure Note Primary Surgeon: Dequan Caballero MD Secondary Surgeon: Sofia Pitts MD Anesthesia Provider: Reggei Pena CRNA Anesthesia Technique: Spinal Pathology: None IV Fluids (mL): 1,200 Estimated Blood Loss (mL): 700 Urine Output (mL): 120 Findings: Normal-appearing uterus, tubes, ovaries. Small amount of adhesions. Vigorous liveborn . Large amount of clear amniotic fluid. Complications: None - Other Other Information/Narrative: section was recommended. Risks, benefits and alternatives were discussed including but not limited to infection, bleeding that may require blood products or hysterectomy for life saving measures, injury to surrounding organs including but not limited to bowel, bladder, ureters, tubes and ovaries and/or the baby. Should injury occur it could require longer/additional surgery to repair. The patient stated understanding and desired to proceed. All questions were answered posed by patient. Prior to being taken to the OR, 2 grams of cefazolin IV was administered. The patient was taken to the operating room where regional anesthesia was found to be adequate. She was then prepared and draped in the usual sterile fashion in the dorsal supine position with a leftward tilt displacing the uterus. Loya was draining to gravity. SCDs were on bilateral lower extremities. Time out was taken. A pfannenstiel skin incision was then made with the scalpel and carried through to the underlying layer of fascia. The fascia was incised in the midline and the incision extended laterally with the Bower scissors. The superior aspect of the facial incision was then grasped with the Janel clamps, elevated and the underlying rectus muscles dissected off sharply. Attention was then turned to the inferior aspect of this incision which in a similar fashion was grasped, elevated with the Janel clamps and the rectus muscle dissected off sharply. While there were not a lot of adhesions, the muscles were attached to the anterior fascia in several places requiring separate dissection. The rectus muscles were in the midline. The peritoneum identified, grasped with the pick-ups and entered sharply with the Metzenbaum scissors. The peritoneal incision was then extended superiorly and inferiorly with good visualization of the bladder. The bladder blade was inserted. The vesicouterine peritoneum was identified, grasped with the pick-ups, and entered sharply with Metzenbaum scissors. This incision was then extended laterally and the bladder flap created digitally. The bladder blade was reinserted. The lower uterine segment was identified and incised in a transverse fashion with the scalpel. The uterine incision was then extended bluntly laterally. Artificial rupture of membranes demonstrated a large amount of clear fluid. The bladder blade was removed. The fetus was in a cephalic presentation. The infants head delivered atraumatically. The anterior shoulders were delivered followed by the posterior shoulders then the remainder of the body. The infants mouth and nose were bulb suctioned. The umbilical cord was clamped times two and cut. The infant was handed to the pediatric team. The placenta was removed with gentle traction. Oxytocin was added to the IV fluid and was allowed to run freely. The uterus was exteriorized and cleared of all clots and debris. The uterine incision was inspected and found to be without any extensions and was repaired with 0 Vicryl in a running, locked fashion. A second imbricating layer was performed. Upon inspection, the repaired hysterotomy was found to be hemostatic. The uterus was firm and returned to the abdomen. The gutters were cleared of all clots and debris. The muscle layer was examined and several areas of oozing were cauterized and was subsequently found to be hemostatic. The fascia was reapproximated with 0 Vicryl in a running fashion. The subcutaneous tissue was closed with 2-0 Vicryl. The skin was closed in a subcuticular fashion with 4-0 Monocryl. The patient tolerated the procedure well. Sponge, lap and needle counts were correct times three. The patient was taken to the recovery room in stable condition. I appreciate the assistance of Dr. Pitts during this procedure, and the assistance in retraction, visualization, dissection, and overall assistance during the case were instrumental to the patient's wellbeing.
--- NOTE | 2023-08-13 11:29 | ANESTHESIA POST OP EVALUATION ---
Anesthesia Post Eval - Post Anesthesia Eval Vitals: Last Vital Signs Temp 18 C L 08/13/23 10:40 Pulse 91 08/13/23 11:10 Resp 16 08/13/23 11:10 BP 105/64 08/13/23 11:10 Pulse Ox 97 08/13/23 11:10 O2 Flow Rate CV Function Including HR & BP: Stable Pain Control: Satisfactory Nausea & Vomiting: Negative Mental Status: Baseline Respiratory Status: Airway Patent Hydration Status: Satisfactory Anesthesia Complications: None
[2023-08-13] MEDS: ACETAMINOPHEN 500 MG TABLET PO SCH (16:03)
[2023-08-13] MEDS: KETOROLAC 30 MG/ML VIAL IVP SCH (16:04)
[2023-08-13] MEDS ORDERED: SODIUM CHLORIDE FLUSH 0.9% 10 ML SYRINGE IVP SCH (17:00)
[2023-08-13] MEDS: oxyCODONE 5 MG TABLET PO PRN (19:46)
[2023-08-13] MEDS: DOCUSATE SODIUM 100 MG CAPSULE PO SCH (21:48)
[2023-08-14 06:01] LABS: BASOPHILS % (AUTO) 0.2 %; EOSINOPHILS # (AUTO) 0.1 10^3/uL (0.0-0.7); EOSINOPHILS % (AUTO) 0.5 %; HCT - HEMATOCRIT 24.9 % (37.0-47.0); HGB - HEMOGLOBIN 7.9 g/dL (12.0-16.0); LYMPHOCYTES # (AUTO) 1.4 10^3/uL (1.5-3.5); LYMPHOCYTES % (AUTO) 15.2 %; MEAN CORPUSCULAR HEMOGLOBIN 29.9 pg (27.0-31.0); MEAN CORPUSCULAR HGB CONC 31.7 g/dL (32.0-36.0); MEAN CORPUSCULAR VOLUME 94.3 fL (81.0-99.0); MEAN PLATELET VOLUME 12.1 fL (7.9-10.8); MONOCYTES # (AUTO) 0.9 10^3/uL (0.0-1.0); MONOCYTES % (AUTO) 9.8 %; NEUTROPHILS # (AUTO) 6.9 10^3/uL (1.5-6.6); NEUTROPHILS % (AUTO) 73.7 %; PLT - PLATELET COUNT 130 10^3/uL (130-450); RED BLOOD COUNT 2.64 10^6/uL (4.20-5.40); RED CELL DISTRIBUTION WIDTH 13.2 % (12.0-15.0); WHITE BLOOD COUNT 9.4 x10^3/uL (4.8-10.8)
[2023-08-14] MEDS: IBUPROFEN 600 MG TABLET PO SCH (09:48)
[2023-08-14] MEDS ORDERED: IBUPROFEN 600 MG TABLET PO SCH (11:00)
[2023-08-14] MEDS: IRON DEXTRAN 1,000 MG in SODIUM CHLORIDE 0.9% 250 ML IV ONE (15:28)
--- NOTE | 2023-08-14 19:14 | PROVIDER PROGRESS NOTE ---
Subjective - Prog Note Date Prog Note Date: 08/14/23 Prog Note Time: 13:00 - Subjective Pt reports feeling: Improved Subjective: having significant pain, not moving much. did a sponge bath and bandage got wet. OK to remove. not walking out of her room. is passing gas. no sx of her anemia. Objective - Vital Signs/Intake & Output Reviewed Vital Signs: Yes Vital Signs: Vital Signs x48h Temp Pulse Resp BP Pulse Ox 08/14/23 15:31 84 18 116/64 97 08/14/23 12:18 97.7 F 86 16 121/69 97 Intake & Output: Intake & Output 08/11/23 08/12/23 08/13/23 08/14/23 23:59 23:59 23:59 23:59 Intake Total 2150 300 Output Total 150 1450 Balance 2000 -1150 - Objective General Appearance: positive: No acute distress Respiratory: positive: No respiratory distress Cardiovascular: positive: Regular rate & rhythm Abdomen: positive: Other (binder on. somewhat bloated above it. tender.) - Lab Results Fish Bones: 08/14/23 05:48 Other Labs: Lab Results x24hrs 08/14/23 Range/Units 05:48 WBC 9.4 (4.8-10.8) x10^3/uL RBC 2.64 L (4.20-5.40) 10^6/uL Hgb 7.9 L (12.0-16.0) g/dL Hct 24.9 L (37.0-47.0) % MCV 94.3 (81.0-99.0) fL MCH 29.9 (27.0-31.0) pg MCHC 31.7 L (32.0-36.0) g/dL RDW 13.2 (12.0-15.0) % Plt Count 130 (130-450) 10^3/uL MPV 12.1 H (7.9-10.8) fL Neut # (Auto) 6.9 H (1.5-6.6) 10^3/uL Lymph # (Auto) 1.4 L (1.5-3.5) 10^3/uL [place] # (Auto) 0.9 (0.0-1.0) 10^3/uL Eos # (Auto) 0.1 (0.0-0.7) 10^3/uL Baso # (Auto) 0.0 (0.0-0.1) 10^3/uL Absolute Nucleated RBC 0.00 x10^3/uL Nucleated RBC % 0.0 /100WBC Assessment/Plan - Problem List (1) Delivered by delivery following previous delivery Impression: doing well post op. not symptomatic from her anemia. Iron dextran 1 g given. encouraged to get up and walk and take a shower.
[2023-08-15] MEDS: SIMETHICONE CHEW 80 MG TABLET PO PRN (08:24)
--- NOTE | 2023-08-15 10:47 | Discharge Plan ---
Discharge Plan Problem Reviewed?: Yes Disposition: Home, Self Care Diet: Regular Shower Restrictions: No Instruction Topics: Depression , C Section Dc No Smoking: If you smoke, Please STOP! Call for help. Follow-up with: Dequan Caballero MD [Provider Admit Priv/Credential] -
[2023-08-15 11:54] VITALS: BP 132/73; O2SAT 96
--- NOTE | 2023-08-15 13:45 | DISCHARGE SUMMARY ---
Discharge Summary Admit Date: 09/13/23 Discharge Date: 09/15/23 Discharging Provider: Dequan Caballero MD Code Status: Attempt Resuscitation Condition at Discharge: Good Discharge Disposition: 01 Home, Self Care - DIAGNOSES Admission Diagnoses: Previous low-transverse section 39 weeks gestation Lagging biometry Discharge Diagnoses with Status of Each Condition: Same Delivery of live shetty Status post repeat low-transverse section Acute blood loss anemia - HPI History of Present Illness: Subjective Patient reports no acute complaints Lochia appropriate. Denies heavy bleeding. Ambulating. Pelvic and abdominal pain well-controlled. Does rank them daily 6, but says this is tolerable and appears less painful. Tolerating oral intake. Diet: Regular. Voiding without difficulty. Passing flatus. Denies BM. Patient is bonding with baby in room Bottle feeding at this time. Denies feeling lightheaded, dizzy or excessively fatigued. Control: Partner vasectomy Objective General: Alert, oriented, no apparent distress. Cardiovascular: Regular rate. Regular rhythm. Lungs: No increased work of breathing. Abdomen: Uterus firm. Below umbilicus. No guarding or rebound. Extremities: No pain on palpation. No cords palpated. Distal pulses intact. Incision: Clean, dry, and intact. Steri-Strips in place - HOSPITAL COURSE Hospital Course: Patient was admitted for scheduled repeat low-transverse section. section was unremarkable. She had anemia at baseline with a preoperative hemoglobin of 9.9, postoperatively, she had a H/H of 7.9/24.9. She was given an iron infusion. She was asymptomatic for anemia, and desired to go home on day 2. She was encouraged to ambulate as she preferred to stay in bed. Encouraged gentle walking and activity and avoid prolonged immobilization. She and baby were doing well her discharged on day 2. - ALLERGIES Allergies/Adverse Reactions: Allergies Allergy/AdvReac Type Severity Reaction Status Date / Time No Known Drug Allergies Allergy Verified 07/29/23 11:38 - MEDICATIONS Home Medications: Ambulatory Orders Medication Instructions Recorded Confirmed Famotidine [Pepcid] 20 mg PO BID PRN 08/13/23 08/13/23 Pnv No.95/Ferrous Fum/Folic AC 1 tab PO DAILY 08/13/23 08/13/23 [ Tablet] Acetaminophen [Acetaminophen Extra 1,000 mg PO Q8H PRN #60 tablet 08/15/23 Strength] Docusate Sodium 100Mg Capsule 100 - 200 mg PO BID PRN #60 cap 08/15/23 [Colace 100Mg Capsule] Escitalopram Oxalate [Lexapro] 20 mg PO DAILY #30 tablet 08/15/23 Ibuprofen [Motrin] 600 mg PO Q6H PRN #30 tab 08/15/23 oxyCODONE [Roxicodone] 5 mg PO Q4H PRN #20 tablet 08/15/23 - LABS Result Diagrams: 08/14/23 05:48 - FOLLOW UP Follow Up: With [facility] in 2 weeks. - TIME SPENT Time Spent in Discharge (Minutes): 20
--- NOTE | 2023-08-15 14:55 | Labor Flowsheet ---
Labor Flowsheet Datetime Report Generated by CPN: 08/15/2023 14:55 Datetime: 08/13/2023 07:30 UTERINE ACTIVITY Monitor Mode: External Frequency (min): 0 per toco Pattern: Normal: <= 5 Contractions in 10 Minutes Resting Tone (Palpate): Relaxed ASSESSMENT A Monitor Mode: External US FHR Baseline Rate : 130 Variability: Moderate 6-25 bpm Accelerations: 15X15 Decelerations: Prolonged Category: Category II Datetime: 08/13/2023 07:15 Monitor Interventions for FHR: Ultrasound Adjusted Datetime: 08/13/2023 07:14 Actions for Decelerations: Side to Side PATIENT CARE Patient Position/Activity: Right Lateral COMMUNICATION Communication: RN at Bedside Datetime: 08/13/2023 06:55 VITAL SIGNS NBP Sys/Noni/Mean (mmHg): 121 : 71 : 83 Pulse: 99
== END 2023-08-15 14:40 | disposition home or self-care (01) | DRG 787 ==
LOC: FBP 06:23
PROVIDERS: ADMIT Obstetrics & Gynecology; ATTEND Obstetrics & Gynecology
PROC: 10D00Z1 Extraction of Products of Conception, Low, Open Approach (ICD-10-PCS; principal; 2023-08-13 08:30)
DX: O34.211 Maternal care for low transverse scar from previous cesarean delivery (principal); D62 Acute posthemorrhagic anemia; Z3A.39 39 weeks gestation of pregnancy; Z37.0 Single live birth; O90.81 Anemia of the puerperium; O99.344 Other mental disorders complicating childbirth; F41.9 Anxiety disorder, unspecified; F32.9 Major depressive disorder, single episode, unspecified; Z79.899 Other long term (current) drug therapy; O99.214 Obesity complicating childbirth
CPT/HCPCS: 36415; 85025; 86850; 86900; 86901; A9270; J0131; J1750; J2274; J2372; J7120